=== PATIENT | male | born 1955 | race Caucasian/White ===

== ENCOUNTER 2017-11-10 10:39 | Inpatient (IN) | payer OTHER ==
[~2017-11-10] VITALS: Ht 165.1 cm; Wt 78.8 kg
--- NOTE | ~2017-11-10 | EKG ---
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 : 1955 Requested By: Abebe Saleh Order Number: [id number] MD: Antolin Holloway Measurements Intervals [place] Rate: 71 P: 81 UT: 179 QRS: 22 QRSD: 95 T: 80 QT: 375 QTc: 408 Interpretive Statements Sinus rhythm Borderline T wave abnormalities Inferior infarct, age indeterminate Baseline wander in lead(s) V3 Compared to ECG 04/13/2016 10:52:12 T-wave abnormality now present Electronically Signed On 11-11-2017 15:52:39 CDT by Antolin Holloway [email or web address] <ELECTRONICALLY SIGNED> By: Antolin Holloway MD, [facility] 11/11/17 1552 0638 Antolin Holloway MD, [facility] /EPI
--- NOTE | ~2017-11-10 | CATHLAB ---
[facility] [address] [place] [address] INVASIVE PROCEDURE REPORT Name: CLYDE BARAHONA Room #: 214-P [facility] IN ..#: [id number] Admission: 11/10/17 Attend Phys: Gurpreet Schaffer MD Discharge: 11/11/17 Date of : 57 Date of Service: 11/11/17 1754 Report #: [id number] THIS REPORT FOR: //name// APPROVED REPORT Study performed: 11/10/2017 15:54:01 Patient Details Patient Status: In-Patient Room #: The patient is a 62 year-old male Event Personnel Abebe Saleh Liquefaction Plant Operator, Jalen Ortega Procedures Performed Left Heart Cath Coronaries, Bypass Grafts 0692926 LHCCORCABG Art Access - R femoral artery* BRANDIE Revasc Graft Single PDA C9604 SVGREVSING 31570 Initial Mod Sed Same Phys/QHP Gr5y 692880 43262 Mod Sed Same Phys/QHP Ea 715849 Hemostasis w/ Mynx Indication Non-STEMI , Dyspnea, Unstable angina Risk Factors Cerebrovascular Disease, Hypercholesterolemia, Coronary Artery DiseaseHypertension Previous Procedures/Diagnoses Previous CABGPrevious PCI, Previous [place] Procedure Narrative The patient was brought urgently to the Cardiac Catheterization Laboratory and was prepped and draped in a sterile manner. The Right Groin^ was infiltrated with 1% Lidocaine subcutaneous anesthesia. A PINNACLE 4FR Sheath #[id number] sheath was inserted into the RFA^. Coronary angiography was performed using coronary diagnostic catheters. The right coronary system was accessed and visualized with a JR 4 catheter. The left coronary system was accessed and visualized with a JL 4 catheter. The left ventricle was accessed and visualized with a Pigtail catheter. Left ventricular/Aortic Valve gradient assessed via catheter pullback. Left ventriculogram was performed in ARENAS projection. Pre-demployment femoral angiogram was performed . Closure device was deployed with a 6 Fr Mynx. The patient tolerated the procedure well and there were no complications associated with [facility] [address] [place] [address] INVASIVE PROCEDURE REPORT Name: CLYDE BARAHONA Room #: 214-P [facility] IN [facility].#: [id number] Admission: 11/10/17 Attend Phys: Gurpreet Schaffer MD Discharge: 11/11/17 Date of : 57 Date of Service: 11/11/17 1754 Report #: [id number] the procedure. There was no hematoma. Intraoperative Conscious Sedation Sedation start time: 16:37 Case end Time: 17:25 Fentanyl 50 mcg Versed 1 mg Fluoro Time: 15.31 minutes Dose: DAP 9786.10 cGycm2 1290 mGy Contrast Type and Amount: Visipaque 225 ml Coronary Angiography The patient's coronary anatomy is right dominant. Diagnostic Cath Left Main Severe stenosis at distal segment. LAD There is a patent POLO graft with an end side anastomosis to the first diagonal artery, with retrograde filling of the LAD. Diagonal 1 After the anastomosis from the POLO graft, there is a 70% obstruction in the diagonal artery, unchanged from prior procedures. Circumflex 100% occlusion in the proximal segment. OM1 There is a patent free radial graft with an end to side anastomosis to OM1. Right Coronary There are sequential severe stenoses in the vein graft to the PDA. Left Ventriculography Left Ventriculography was not performed. An LVEDP was measured and there is no gradient across the outflow tract. Hemodynamics The aortic pressure is 184/106 mmHg with a mean of 122 mmHg. The left ventricular pressure is 201/17 mmHg with a mean of mmHg. The left ventricular end diastolic pressure is 35 mmHg. PCI Technique Lesion Anticoagulation was achieved with Angiomax. Patient was preloaded with Ticagrelor PO 180 mg. Percutaneous coronary intervention was performed on the saphenous vein graft to the PDA. The lesion stenosis prior to intervention was 95% with ERIK 3 flow. A [place] 6 fr MPA Guide Catheter was used to engage the ostium. A Luge Wire Interventional Guidewire was used to cross the lesion. BALLOON DILATION A Balloon catheter Euphora 2.5 x 15 was inserted and inflated up to [facility] [address] [place] [address] INVASIVE PROCEDURE REPORT Name: CLYDE BARAHONA Room #: 214-P [facility] IN ..#: [id number] Admission: 11/10/17 Attend Phys: Gurpreet Schaffer MD Discharge: 11/11/17 Date of : 57 Date of Service: 11/11/17 1754 Report #: [id number] 10atm for 24seconds. Additional Inflation: 10atm for 24seconds. STENT DEPLOYMENT A drug-eluting stent Resolute Integrity 3.5 x 12 was inserted and inflated up to 16atm for 17seconds. POST STENT DEPLOYMENT BALLOON DILATION A Balloon catheter NC Trek Balloon 3.5 x 12 was inserted and inflated up to 18atm for 15seconds. Final angiography reveals 5 % stenosis with ERIK 3 flow. STENT DEPLOYMENT A drug-eluting stent Resolute Integrity 3.5 x 18 was inserted and inflated up to 12atm for 15seconds. Final angiography reveals 5 % stenosis with ERIK 3 flow. Conclusion 1. Successful insertion of drug-eluting stents into the severe occlusions in the SVG to PDA. 2. Patent POLO graft to the first diagonal artery, with retrograde filling of the LAD vessel. 3. Patent radial graft to OM1. 4. Recommend dual antiplatelet therapy. <ELECTRONICALLY SIGNED> By: Abebe Saleh MD 11/11/171753 53 53 Abebe Saleh MD /INF
--- NOTE | ~2017-11-10 | EKG ---
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
--- NOTE | ~2017-11-10 | EKG ---
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 : 1955 Requested By: Gaurang Valentin Order Number: [id number] MD: Antolin Holloway Measurements Intervals [place] Rate: 66 P: 75 ID: 189 QRS: 13 QRSD: 97 T: 79 QT: 422 QTc: 443 Interpretive Statements Sinus rhythm Inferior infarct, age indeterminate Compared to ECG 04/13/2016 10:52:12 No significant change was found Electronically Signed On 11-11-2017 14:08:39 CDT by Antolin Holloway [email or web address] <ELECTRONICALLY SIGNED> By: Antolin Holloway MD, [facility] 11/11/17 1408 D: [id number] Antolin Holloway MD, [facility] /EPI
--- NOTE | ~2017-11-10 | HC ---
[facility] [place] [address] [place] [address] CONSULTATION Name: JUNCLYDE Fer Room #: 214-P [facility] IN M.R.#: [id number] Admission: 11/10/17 Attend Phys: Gurpreet Schaffer MD Discharge: Date of : 57 Report #: [id number] THIS REPORT FOR: //name// CC: Sofia Schaffer DATE OF SERVICE: 11/10/2017 INDICATION: Chest pain. HISTORY OF PRESENT ILLNESS: The patient is a 62-year-old gentleman with a history of CABG, CA, stents, presenting with recurrent chest pain. For the past several days, he has been experiencing a substernal chest discomfort, brought on by mild exertion. Just walking from room to room will elicit the chest pain. He also developed some shortness of air. His symptoms are relieved with rest. There is no history of fever, nausea, diarrhea, or chills. He denies any history of PND or orthopnea. PAST MEDICAL HISTORY: CABG in 2003, at [facility]. 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 There is a patent POLO to the diagonal artery, with retrograde filling of the LAD. There is a patent free radial graft to an OM vessel. There is severe diffuse disease in small caliber vessels including diagonal, distal OM and mid PDA. History of diabetes mellitus, hypertension, hypercholesterolemia, ischemic cardiomyopathy. History of CVA, status post apparent thrombectomy at [facility] in 2016, denies any residual effects. ALLERGIES: To CONTRAST, PENICILLIN, and LISINOPRIL MEDICATIONS: Lipitor 40 mg daily, omeprazole, Coreg 25 mg twice a day, losartan 50 mg daily, aspirin, and Plavix. SOCIAL HISTORY: Denies tobacco use. FAMILY HISTORY: Negative for premature CAD. REVIEW OF SYSTEMS: A full 10-point review of systems performed. Only the pertinent positives and negatives are described in the HPI. PHYSICAL EXAMINATION: VITAL SIGNS: Blood pressure is 148/85, heart rate 66 beats per minute. GENERAL APPEARANCE: This is an elderly appearing male, in no acute distress. HEENT: Normocephalic. Sclerae are anicteric. ENT: Oral mucosa moist. NECK: Supple. LUNGS: CTA. [address] [address] CONSULTATION Name: CLYDE BARAHONA Room #: 214-P [facility] IN M.R.#: [id number] Admission: 11/10/17 Attend Phys: Gurpreet Schaffer MD Discharge: Date of : 57 Report #: [id number] CARDIAC: RRR. S1, S2 positive. ABDOMEN: Soft. EXTREMITIES: No cyanosis, no edema. ECG reveals sinus rhythm, nonspecific findings. LABORATORY VALUES: Hemoglobin 14.3. Creatinine is 1.0. Troponin is 0.10. ASSESSMENT AND PLAN: 1. Unstable angina/acute coronary syndrome, given his history and presentation, the plan is to proceed with a cardiac catheterization. The patient understands and wishes to proceed. 2. Hypertension, continue with medications. 3. Hypercholesterolemia, continue with statins. 4. Cerebrovascular accident, stable at this time. <ELECTRONICALLY SIGNED> By: Abebe Saleh MD 11/11/17 0743 1321 1831 Abebe Saleh MD /nt
[~2017-11-10 10:39] MED LIST: ACCUPRIL10 MG PO; AMLODIPINE BESY10 MG PO; ASA5UEC PO; ASPIRIN81 M2 PO; ATORVASTATIN CA40 MG PO; CARVEDILOL25 MG PO; COZAAR 50 MG TA50 M2 PO; EFFIENT10 MG PO; FISH OIL 1,001000 M2 PO; FLOMAX0.4 MG PO; GLUCOPHAGE500 MG PO; HYDROCHLOROTH12.5 M1 PO; IBUPROFEN 800800 MG PO; LEVAQUIN 500 M500 MG PO; LIPITOR 20 MG T20 M1 PO; LORTAB 10 MG-3473 ML PO; MEN'S MULTI-VI1 EACH; NORCO 5-325 TA1 EACH PO; NORVASC10 MG PO; OMEPRAZOLE20 M1; PERCOCET 5-3251 EACH PO; TESSALON PERLE100 MG PO; TOPROL XL100 MG; ULTRACET TABLE1 EACH PO; VENTOLIN HFA 1818 GM INH; ZOFRAN ODT4 MG PO
[2017-11-10 10:48] VITALS: BP 171/93
[2017-11-10] MEDS ORDERED: ASPIR 8181 MG PO (10:56)
[2017-11-10] MEDS ORDERED: PLAVIX 75 MG TA75 M1 PO (10:58)
[2017-11-10 11:49] LABS: ABSOLUTE NEUTROPHILS 4.9 thou/uL (1.4-8.2); BASOPHILS 0.5 % (0.0-2.0); EOSINOPHILS 0.8 % (0.0-3.0); HEMATOCRIT 42.5 % (42.0-52.0); HEMOGLOBIN 14.3 gm/dL (14.0-18.0); MCH 31.3 pg (26.0-34.0); MCHC 33.5 g/dL (28.0-37.0); MCV 93.3 fL (80.0-100.0); PLATELET COUNT 161 thou/uL (150-400); POLYS 65.7 % (36.0-66.0); RBC 4.56 mil/uL (4.50-6.00); RDW 13.4 % (10.5-14.5); WBC 7.4 thou/uL (4.0-11.0)
[2017-11-10 11:51] LABS: CALCIUM 8.9 mg/dL (8.5-10.1); POTASSIUM 4.2 mmol/L (3.5-5.1)
[2017-11-10 12:00] LABS: ALBUMIN 3.7 g/dL (3.4-5.0); TOTAL BILIRUBIN 0.6 mg/dL (<0.1-1.0); TOTAL PROTEIN 6.6 g/dL (6.4-8.2); TROPONIN-I 0.1 ng/mL (<0.06)
[2017-11-10 12:28] LABS: APTT 28.2 Seconds (24.5-32.8); INR 1.1; PROTIME 10.8 Seconds (9.3-11.4)
[2017-11-10 13:25] VITALS: BP 137/86
[2017-11-10 19:35] VITALS: BP 154/87
[2017-11-11 00:47] VITALS: BP 153/92
[2017-11-11 04:05] LABS: HEMATOCRIT 43.3 % (42.0-52.0); HEMOGLOBIN 14.4 gm/dL (14.0-18.0); MCH 30.8 pg (26.0-34.0); MCHC 33.3 g/dL (28.0-37.0); MCV 92.8 fL (80.0-100.0); RBC 4.66 mil/uL (4.50-6.00); RDW 13.3 % (10.5-14.5); WBC 12.6 thou/uL (4.0-11.0)
[2017-11-11 04:21] LABS: CALCIUM 8.7 mg/dL (8.5-10.1); CREATININE 1.1 mg/dL (0.7-1.3); POTASSIUM 3.9 mmol/L (3.5-5.1); TROPONIN-I 0.27 ng/mL (<0.06)
[2017-11-11 05:05] VITALS: BP 153/92
[2017-11-11 07:45] VITALS: BP 157/85
[2017-11-11 11:07] VITALS: BP 153/83
[2017-11-11] MEDS ORDERED: BRILINTA90 MG PO (15:04)
[2017-11-11] MEDS ORDERED: NITROGLYCERIN0.4 MG SUBLING (15:04)
[2017-11-11 15:26] VITALS: BP 146/81
[2017-11-11 15:27] VITALS: BP 146/81
== END 2017-11-11 16:12 | disposition home or self-care (01) | DRG 246 ==
LOC: ER 10:39 → 2N 12:34 → EROBS 12:34 → 2N 13:25
PROVIDERS: Emergency Medicine; Hospitalist
PROC: B2151ZZ Fluoroscopy of Left Heart using Low Osmolar Contrast (ICD-10-PCS; principal; 2017-11-10)
PROC: B2111ZZ Fluoroscopy of Multiple Coronary Arteries using Low Osmolar Contrast (ICD-10-PCS; principal; 2017-11-10)
PROC: 4A023N7 Measurement of Cardiac Sampling and Pressure, Left Heart, Percutaneous Approach (ICD-10-PCS; principal; 2017-11-10)
PROC: 027035Z Dilation of Coronary Artery, One Artery with Two Drug-eluting Intraluminal Devices, Percutaneous Approach (ICD-10-PCS; principal; 2017-11-10)
DX: I21.4 Non-ST elevation (NSTEMI) myocardial infarction (principal); I50.33 Acute on chronic diastolic (congestive) heart failure; I42.9 Cardiomyopathy, unspecified; I25.810 Atherosclerosis of coronary artery bypass graft(s) without angina pectoris; Z96.643 Presence of artificial hip joint, bilateral; E78.5 Hyperlipidemia, unspecified; E78.00 Pure hypercholesterolemia, unspecified; M19.90 Unspecified osteoarthritis, unspecified site; E11.9 Type 2 diabetes mellitus without complications; I25.2 Old myocardial infarction; Z95.1 Presence of aortocoronary bypass graft; Z86.73 Personal history of transient ischemic attack (TIA), and cerebral infarction without residual deficits; Z95.5 Presence of coronary angioplasty implant and graft; Z79.82 Long term (current) use of aspirin; Z88.0 Allergy status to penicillin; Z88.8 Allergy status to other drugs, medicaments and biological substances; Z91.041 Radiographic dye allergy status; Z87.891 Personal history of nicotine dependence; Z79.84 Long term (current) use of oral hypoglycemic drugs; Z79.899 Other long term (current) drug therapy; I11.0 Hypertensive heart disease with heart failure
CPT/HCPCS: 10194

== ENCOUNTER → 2018-05-04 | Outpatient (CLI) | payer OTHER ==
[~2018-05-04] MED LIST changes: +ASPIR 8181 MG PO; +BRILINTA90 MG PO; +NITROGLYCERIN0.4 MG SUBLING; +PLAVIX 75 MG TA75 M1 PO
--- NOTE | ~2018-05-04 | 2DMMODE ---
[facility] [employer] [place] [address] 2 D/M-MODE ECHOCARDIOGRAM Name: CLYDE BARAHONA Room #: REG [facility]#: [id number] Admission: 05/04/18 Attend Phys: Abebe Saleh MD Discharge: Date of : 57 Date of Service: 05/04/18 1556 Report #: [id number] THIS REPORT FOR: //name// APPROVED REPORT Study performed: 05/04/2018 14:49:19 EXAM: Comprehensive 2D, Doppler, and color-flow Echocardiogram Patient Location: Out-Patient Room #: Echo 1 Status: routine BSA: 1.85 HR: 75 bpm BP: 144/82 mmHg Rhythm: NSR Other Information Study Quality: Good Risk Factors: Cardiac Risk Factors: HTN, Hyperlipidemia, DM Indications Diabetes CAD Hypertension/HDD 2D Dimensions RVDd: 29.39 mm IVSd: 11.43 (7-11mm) LVOT Diam: 23.19 (18-24mm) LVDd: 45.80 mm PWd: 11.41 (7-11mm) LVDs: 35.96 (25-40mm) Aortic Root: 33.54 mm IVC: 10.00 mm Volumes Left Atrial Volume (Systole) Single Plane 4CH: 31.37 mL Single Plane 2CH: 40.73 mL LA ESV Index: 20.00 mL/m2 Aortic Valve AoV Peak Timothy.: 1.51 m/s AO Peak Gr.: 9.10 mmHg LVOT Max P.21 mmHg LVOT Max V: 1.03 m/s [facility] [address] [place] [address] 2 D/M-MODE ECHOCARDIOGRAM Name: CLYDE BARAHONA Room #: REG [facility]#: [id number] Admission: 05/04/18 Attend Phys: Abebe Saleh MD Discharge: Date of : 57 Date of Service: 05/04/18 1556 Report #: [id number] LORETA Vmax: 2.87 cm2 AI Vmax: 4.08 m/s AI Hickman: 1.60 m/s2 AI PHT: 737.35 ms Mitral Valve E/A Ratio: 0.9 MV Decel. Time: 175.56 ms MV E Max Timothy.: 0.68 m/s MV A Timothy.: 0.80 m/s MV PHT: 50.91 ms IVRT: 106.11 ms Pulmonary Valve PV Peak Timothy.: 1.01 m/s PV Peak Gr.: 4.06 mmHg Pulmonary Vein P Vein S: 0.69 m/s P Vein A: 0.33 m/s P Vein D: 0.55 m/s P Vein A Dur.: 120.0 msec P Vein S/D Ratio: 1.25 Left Ventricle The left ventricle is normal size. There is normal left ventricular wall thickness. The left ventricular systolic function is normal. LVEF is 55-60%. Grade I - abnormal relaxation pattern. Right Ventricle The right ventricle is normal size. The right ventricular systolic function is normal. Atria The left atrium size is normal. The right atrium size is normal. Aortic Valve The aortic valve is normal in structure. Mild aortic regurgitation. There is no aortic valvular stenosis. Mitral Valve The mitral valve is normal in structure. There is no mitral valve regurgitation noted. No evidence of mitral valve stenosis. Tricuspid Valve The tricuspid valve is normal in structure. Trace tricuspid regurgitation. Unable to assess PA pressure. [facility] [employer] [place] [address] 2 D/M-MODE ECHOCARDIOGRAM Name: JUNCLYDE Monroe Room #: REG [facility]#: [id number] Admission: 05/04/18 Attend Phys: Abebe Saleh MD Discharge: Date of : 57 Date of Service: 05/04/18 1556 Report #: [id number] Pulmonic Valve Pulmonic valve is not well visualized. Trace pulmonic regurgitation. Great Vessels The aortic root is normal in size. The ascending aorta is normal in size. IVC is normal in size and collapses >50% with inspiration. Pericardium There is no pericardial effusion. <Conclusion> The left ventricle is normal size. There is normal left ventricular wall thickness. The left ventricular systolic function is normal. Grade I - abnormal relaxation pattern. The right ventricle is normal size. The left atrium size is normal. Mild aortic regurgitation. The mitral valve is normal in structure. Trace tricuspid regurgitation. <ELECTRONICALLY SIGNED> By: Abebe Saleh MD 05/04/18 1556 155 155 Abebe Saleh MD /INF
== END ==
LOC: CV 04-06 10:27
DX: I35.1 Nonrheumatic aortic (valve) insufficiency (principal); I25.10 Atherosclerotic heart disease of native coronary artery without angina pectoris; I10 Essential (primary) hypertension; E11.9 Type 2 diabetes mellitus without complications

== ENCOUNTER 2020-03-23 10:41 | Inpatient (IN) | payer OTHER ==
[2020-03-23] VITALS (9 sets, daily range): BP systolic 123–155; BP diastolic 76–92
[~2020-03-23] VITALS: Ht 165.1 cm; Wt 65.8 kg
[2020-03-23] MEDS ORDERED: PLAVIX 75 MG TA75 MG PO (10:50)
[2020-03-23 11:06] LABS: ABSOLUTE NEUTROPHILS 10.4 thou/uL (1.4-8.2); BASOPHILS 0.5 % (0.0-2.0); EOSINOPHILS 0.2 % (0.0-3.0); HEMATOCRIT 48.4 % (42.0-52.0); HEMOGLOBIN 16.1 gm/dL (14.0-18.0); LYMPHOCYTES 21.4 % (24.0-44.0); MCH 32.1 pg (26.0-34.0); MCHC 33.2 g/dL (28.0-37.0); MCV 96.7 fL (80.0-100.0); MONOCYTES 3.8 % (1.0-8.0); PLATELET COUNT 261 thou/uL (150-400); POLYS 74.1 % (36.0-66.0); RBC 5.01 mil/uL (4.50-6.00); RDW 13.5 % (10.5-14.5)
[2020-03-23 11:18] LABS: ANION GAP 13 mmol/L (7-16); BUN 17 mg/dL (7-18); CALCIUM 9.3 mg/dL (8.5-10.1); CHLORIDE 104 mmol/L (98-107); CO2 23 mmol/L (21-32); CREATININE 1.2 mg/dL (0.7-1.3); GLUCOSE 270 mg/dL (74-106); POTASSIUM 4.5 mmol/L (3.5-5.1); SODIUM 140 mmol/L (136-145)
[2020-03-23 11:20] LABS: APTT 26.6 Seconds (24.5-32.8); PROTIME 10.3 Seconds (9.3-11.4)
[2020-03-23 11:29] LABS: ALBUMIN 4.3 g/dL (3.4-5.0); MAGNESIUM 1.7 mg/dL (1.8-2.4); SGOT 17 U/L (15-37); SGPT 32 U/L (30-65); TOTAL BILIRUBIN 0.5 mg/dL (0.2-1.0); TOTAL PROTEIN 7.6 g/dL (6.4-8.2); TROPONIN-I <0.06 ng/mL (<0.06)
--- NOTE | 2020-03-23 15:34 | EKG ---
[facility] [place] [address] [address] [place] [address] ELECTROCARDIOGRAM REPORT Name: CLYDE BARAHONA Room #: 214-P ADM IN M.R.#: [id number] Admission: 03/23/20 Attend Phys: Comfort Bethea MD Discharge: Date of : 57 Report #: [id number] THIS REPORT FOR: cc: Sofia Kumari MD, Nora P. 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: : 1955 Requested By: Ibrahima Mason Order Number: [id number] MD: Antione Muñoz Measurements Intervals [place] Rate: 47 P: 92 [place]: 178 QRS: 83 QRSD: 100 T: 96 QT: 451 QTc: 399 Interpretive Statements Sinus bradycardia Consider left atrial enlargement Probable LVH with secondary repol abnrm Inferoposterior infarct, acute (RCA) Probable RV involvement, suggest recording right precordial leads Compared to ECG 11/11/2017 06:38:25 Sinus rhythm no longer present T-wave abnormality no longer present Myocardial infarct finding still present Electronically Signed On 03-23-2020 15:34:51 CDT by Antione Muñoz [email or web address] <ELECTRONICALLY SIGNED> By: Antione Muñoz MD, FAC 03/23/20 1534 1049 1049 Antione Muñoz MD, [facility] /EPI
--- NOTE | 2020-03-23 15:43 | CATHLAB ---
[facility] [address] [place] [address] INVASIVE PROCEDURE REPORT Name: CLYDE BARAHONA Room #: 214-P ADM IN .R.#: [id number] Admission: 03/23/20 Attend Phys: Comfort Bethea MD Discharge: Date of : 57 Report #: [id number] THIS REPORT FOR: cc: Sofia Kumari MD, Nora P. MD Park, Jin S. MD ~ APPROVED REPORT Study performed: 03/23/2020 11:35:43 Patient Details Patient Status: In-Patient Room #: The patient is a 64 year-old male Event Personnel Abebe Saleh Planimeter Operator, Amy Avelar RN RN, Dasha Cisse Monitor, Katy Hui RTR Scrub, Radha Gandara Scrub Procedures Performed Art Access - R femoral artery* 90140 Initial Mod Sed Same Phys/QHP Gr5y 061754 Left Heart Cath Coronaries, Bypass Grafts 2675176 LHCCORCABG BRANDIE Place w/wo Plasty Single PDA 004199 Hemostasis w/ Mynx Indication STEMI (>0 to less than or equal to 6 hours), Dyspnea, Chest pain Risk Factors Cerebrovascular Disease, Hypercholesterolemia, Coronary Artery DiseaseHypertension, Diabetes Previous Procedures/Diagnoses Previous CABGPrevious CVAPrevious PCI, Previous [place] Procedure Narrative The patient was brought emergently to the Cardiac Catheterization Laboratory and was prepped and draped in a sterile manner. The Right Groin^ was infiltrated with 1% Lidocaine subcutaneous anesthesia. A PINNACLE 6FR Sheath #[id number] sheath was inserted into the RFA^. Coronary angiography was performed using coronary diagnostic catheters. The right coronary system was accessed and visualized with a JR 4 catheter. The left coronary system was accessed and visualized [facility] [address] [place] [address] INVASIVE PROCEDURE REPORT Name: CLYDE BARAHONA Room #: 214-P [facility] IN [facility].#: [id number] Admission: 03/23/20 Attend Phys: Daniel Redd Discharge: Date of : 57 Report #: [id number] with a JL 4 catheter. The left ventricle was accessed and visualized with a Pigtail catheter. Left ventricular/Aortic Valve gradient assessed via catheter pullback. Left ventriculogram was performed in ARENAS projection. Pre-demployment femoral angiogram was performed . Closure device was deployed with a 6 Fr Mynx. The patient tolerated the procedure well and there were no complications associated with the procedure. There was no hematoma. Intraoperative Conscious Sedation Sedation start time: 11:46 Case end Time: 12:29 Fentanyl 50 mcg Versed 1 mg Fluoro Time: 19.40 minutes Dose: DAP 24131.00 cGycm2 4158 mGy Contrast Type and Amount: Visipaque 265 ml Diagnostic Cath Left Main The left main has a severe occlusion distally. LAD There is a patent POLO graft with an end-to-side anastomosis to the first diagonal artery. After the anastomosis, there is retrograde filling of the mid and distal LAD. Diagonal 1 After the anastomosis, there is a severe occlusion in the midsegment, 70%. This is unchanged from prior procedures. Circumflex There is a patent free radial graft with a end-to-side anastomosis to OM1. Right Coronary The RCA is occluded. R PDA There is a saphenous vein graft with a end-to-side anastomosis to the PDA. After the anastomosis, there is retrograde filling of the posterior lateral branch. There are patent stents within the body of the vein graft. At the distal segment of the SVG, there is a severe occlusion of 99%. At the anastomosis, there is a severe occlusion in the PDA, 80%. Left Ventriculography Left Ventriculography was not performed. An LVEDP was measured and there is no gradient across the outflow tract. IVUS Findings Euphora RX 2.0 x 15 #[id number] Hemodynamics The aortic pressure is 211/88 mmHg with a mean of 130 mmHg. The left ventricular pressure is 133/14 mmHg with a mean of mmHg. The left [facility] [address] [place] [address] INVASIVE PROCEDURE REPORT Name: CLYDE BARAHONA Room #: 214-P [facility] IN M.R.#: [id number] Admission: 03/23/20 Attend Phys: Daniel Redd Discharge: Date of : 57 Report #: [id number] ventricular end diastolic pressure is 24 mmHg. PCI Technique Lesion Percutaneous coronary intervention was performed on the SVG to right posterior descending artery. The lesion stenosis prior to intervention was 99% with ERIK 2 flow. [place] 6FR MPA 1 #[id number] Guide Catheter was used to engage the ostium. A Luge Wire .014 x 182CM #[id number] Interventional Guidewire was used to cross the lesion. BALLOON DILATION A Balloon catheter TREK RX 2.50 X 8 #[id number] was inserted and inflated up to 8.00atm for 17seconds. Additional Inflation: 8.00atm for 8seconds. STENT DEPLOYMENT A drug-eluting stent RESOLUTE ALEXANDRA RX 3.5 X 15 #[id number] was inserted and inflated up to 16.00atm for 24seconds. Additional Inflation: 18.00atm for 10seconds. Final angiography reveals 0 % stenosis with ERIK 3 flow. BALLOON DILATION A Balloon catheter Euphora RX 2.0 x 15 #[id number] was inserted and inflated up to 8.00atm for 20seconds. Additional Inflation: 12.00atm for 17seconds. Additional Inflation: 10.00atm for 18seconds. STENT DEPLOYMENT A drug-eluting stent RESOLUTE ALEXANDRA RX 2.0 X 18 #[id number] was inserted and inflated up to 12.00atm for 20seconds. Additional Inflation: 14.00atm for 15seconds. PCI Technique Lesion 2 Percutaneous coronary intervention was performed on the right posterior descending artery. The lesion stenosis prior to intervention was 80% with ERIK 2 flow. Balloon Dilation A Balloon catheter Euphora RX 2.0 x 15 #[id number] was inserted and inflated up to 8atm for 12seconds. Stent Deployment A drug-eluting stent RESOLUTE ALEXANDRA RX 2.0 X 18 #[id number] was inserted and inflated up to 12atm for 12seconds. Post Stent Deployment Balloon Dilation [facility] [address] [place] [address] INVASIVE PROCEDURE REPORT Name: CLYDE BARAHONA Room #: 214-P ADM IN M.R.#: [id number] Admission: 03/23/20 Attend Phys: Daniel Redd Discharge: Date of : 57 Report #: [id number] A Balloon catheter Euphora NC RX 2.0 x 12 #[id number] was inserted and inflated up to 16atm for 12seconds. Final angiography reveals 5 % stenosis with ERIK 3 flow. Conclusion 1. Successful insertion of a drug-eluting stent into the distal segment of the SVG to the PDA. 2. Successful insertion of a drug-eluting stent into the PDA after the anastomosis of the SVG. 3. There is a patent POLO graft to the first diagonal artery, with retrograde filling of the LAD. 4. There is a patent free radial graft to OM1. 5. Recommend dual antiplatelet therapy and guideline directed medical therapy. <ELECTRONICALLY SIGNED> By: Abebe Saleh MD 03/23/20 1543 1543 1543 Abebe Saleh MD /INF
--- NOTE | 2020-03-23 15:52 | NUR ---
ASSUMED CARE OF PT AT APPROX 1420 FROM OPHTHALMIC AIDE, D/T STEMI. [address] R GROIN SITE CDI WITHOUT BRUISING OR HEMATOMA. ADMISSION ORDERS, INSTRUCTIONS AND ASSESSMENT COMPLETE. WILL CONTINUE TO MONITOR AND FOLLOW POC.
[2020-03-23] MEDS ORDERED: COZAAR 25 MG TA25 MG PO (16:59)
[2020-03-23 23:03] LABS: AMP/METHAMP Negative (Negative); BARBITURATES Negative (Negative); BENZODIAZEPINES POSITIVE (Negative); COCAINE Negative (Negative); METHADONE Negative (Negative); OPIATES Negative (Negative); PCP Negative (Negative)
[2020-03-24 04:00] VITALS: BP 131/64
[2020-03-24 04:15] VITALS: BP 131/64
--- NOTE | 2020-03-24 04:42 | NUR ---
assumed pt care at the change of shift, pt is awake, alert and oriented, assessments as charted, meds given as per mar, denies chest pain or sob, sr on the monitor, vss, right groin cath site cdi, no hematoma, sleep interrupted, denies having concerns, no acute distress noted, progressing well towards poc, plan to dc home
[2020-03-24 05:40] LABS: HEMATOCRIT 45.4 % (42.0-52.0); HEMOGLOBIN 15.1 gm/dL (14.0-18.0); MCHC 33.3 g/dL (28.0-37.0); MCV 96.2 fL (80.0-100.0); RBC 4.72 mil/uL (4.50-6.00); RDW 13.6 % (10.5-14.5)
--- NOTE | 2020-03-24 07:40 | EKG ---
[facility] [place] [address] ELECTROCARDIOGRAM REPORT Name: JUNCLYDE Fer Room #: 214-P ADM IN M.R.#: [id number] Admission: 03/23/20 Attend Phys: Comfort Bethea MD Discharge: Date of : 57 Report #: [id number] THIS REPORT FOR: cc: Sofia Kumari MD, Nora P. 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 : 1955 Requested By: Abebe Saleh Order Number: [id number] MD: Antione Muñoz Measurements Intervals [place] Rate: 86 P: 57 MO: 177 QRS: -5 QRSD: 95 T: 83 QT: 350 QTc: 419 Interpretive Statements Sinus rhythm Probable left ventricular hypertrophy Inferior infarct, recent, ST elevation less prominent Compared to ECG 03/23/2020 10:49:40 Sinus bradycardia no longer present Myocardial infarct finding still present Electronically Signed On 03-24-2020 7:40:30 CDT by Antione Muñoz [email or web address] <ELECTRONICALLY SIGNED> By: Antione Muñoz MD, FACC 03/24/20 0740 1733 1733 Antione Muñoz MD, FACC /EPI
[2020-03-24 07:52] VITALS: BP 130/80
--- NOTE | 2020-03-24 08:17 | EKG ---
[facility] [place] [address] [address] ELECTROCARDIOGRAM REPORT Name: CLYDE BARAHONA Room #: 214-P ADM IN M.R.#: [id number] Admission: 03/23/20 Attend Phys: Comfort Bethea MD Discharge: Date of : 57 Report #: [id number] THIS REPORT FOR: cc: Sofia Kumari MD, Nora P. 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 : 1955 Requested By: Abebe Saleh Order Number: [id number] MD: Antolin Holloway Measurements Intervals [place] Rate: 75 P: 74 DC: 172 QRS: -17 QRSD: 109 T: -63 QT: 427 QTc: 477 Interpretive Statements Sinus rhythm Inferior infarct, age indeterminate Abnrm T, consider ischemia, lateral lds Compared to ECG 03/23/2020 17:33:57 Lateral T wave abnormality is more pronounced Electronically Signed On 03-24-2020 8:17:26 CDT by Antolin Holloway [email or web address] <ELECTRONICALLY SIGNED> By: Antolin Holloway MD, FACC 03/24/20816 4 4 Antolin Holloway MD, FACC /EPI
[2020-03-24] MEDS ORDERED: BRILINTA90 MG PO (09:47)
[2020-03-24 11:18] VITALS: BP 103/69
--- NOTE | 2020-03-24 13:28 | 2DMMODE ---
[facility] [place] [address] 2 D/M-MODE ECHOCARDIOGRAM Name: CLYDE BARAHONA Room #: 214-P ADM IN M.R.#: [id number] Admission: 03/23/20 Attend Phys: Comfort Bethea MD Discharge: Date of : 57 Report #: [id number] THIS REPORT FOR: cc: Sofia Kumari MD, Nora P. MD Park, Jin S. MD ~ APPROVED REPORT Study performed: 03/24/2020 12:18:58 EXAM: Comprehensive 2D, Doppler, and color-flow Echocardiogram Patient Location: Bedside Room #: 214 Status: routine BSA: 1.73 HR: 62 bpm BP: 103/69 mmHg Rhythm: NSR Other Information Study Quality: Good Indications STEMI, status post PCI. Hx: MIx2, CABG, stents, HTN, HLP, DM. 2D Dimensions RVDd: 34.76 mm IVSd: 10.06 (7-11mm) LVDd: 40.61 mm PWd: 10.22 (7-11mm) Ascending Ao: 29.41 (22-36mm) LVDs: 31.88 (25-40mm) Aortic Root: 37.34 mm Volumes Left Atrial Volume (Systole) Single Plane 4CH: 32.13 mL Single Plane 2CH: 52.10 mL LA ESV Index: 26.00 mL/m2 Aortic Valve AoV Peak Timothy.: 1.37 m/s AO Peak Gr.: 7.47 mmHg LVOT Max P.94 mmHg LVOT Max V: 0.99 m/s [facility] [address] [place] [address] 2 D/M-MODE ECHOCARDIOGRAM Name: CLYDE BARAHONA Room #: 214-P [facility] IN ..#: [id number] Admission: 03/23/20 Attend Phys: Daniel Redd Discharge: Date of : 57 Report #: [id number] Mitral Valve E/A Ratio: 1.1 MV Decel. Time: 248.32 ms MV E Max Timothy.: 0.74 m/s MV A Timothy.: 0.66 m/s MV PHT: 72.01 ms IVRT: 89.97 ms Pulmonary Valve PV Peak Timothy.: 1.00 m/s PV Peak Gr.: 3.99 mmHg Pulmonary Vein P Vein S: 0.60 m/s P Vein D: 0.50 m/s P Vein S/D Ratio: 1.20 Tricuspid Valve RAP Estimate: 5.00 mmHg Left Ventricle The left ventricle is normal size. There is hypokinesis in the mid to basal inferior wall. There is normal left ventricular wall thickness. Left ventricular systolic function is low-normal LVEF is 50%. Moderate diastolic dysfunction is present. Right Ventricle The right ventricle is normal size. The right ventricular systolic function is normal. Atria The left atrium size is normal. The right atrium size is normal. Aortic Valve The aortic valve is normal in structure; mildly calcified. Mild aortic regurgitation. There is no aortic valvular stenosis. Mitral Valve The mitral valve is normal in structure. Minimal mitral annular calcification. There is no mitral valve regurgitation noted. No evidence of mitral valve stenosis. Tricuspid Valve The tricuspid valve is normal in structure. There is no tricuspid valve regurgitation noted. Unable to assess PA pressure. [facility] [address] [address] 2 D/M-MODE ECHOCARDIOGRAM Name: CLYDE BARAHONA Room #: 214-P [facility] IN ..#: [id number] Admission: 03/23/20 Attend Phys: Daniel Redd Discharge: Date of : 57 Report #: [id number] Pulmonic Valve Pulmonic valve is not well visualized. Trace pulmonic regurgitation. Great Vessels The aortic root is normal in size. The ascending aorta is normal in size. IVC is normal in size and collapses >50% with inspiration. Pericardium There is no pericardial effusion. <Conclusion> The left ventricle is normal size. The left ventricle is normal size. Left ventricular systolic function is low-normal There is hypokinesis in the mid to basal inferior wall. Moderate diastolic dysfunction is present. The right ventricle is normal size. The aortic valve is normal in structure; mildly calcified. Mild aortic regurgitation. There is no mitral valve regurgitation noted. <ELECTRONICALLY SIGNED> By: Abebe Saleh MD 03/24/208 27 27 Abebe Saleh MD /INF
[2020-03-24 15:49] VITALS: BP 142/87
--- NOTE | 2020-03-24 17:47 | NUR ---
ASSUMED CARE AT CHANGE OF SHIFT. ALERTX4, DENIES PAIN, DENIES SOB.RIGHT GROIN SIGHT C/D/I. SR ON TELE, TROPONIN VALUE REPORTED TO CARDIOLGY WITH NO NEW ORDERS. UP AB ALICIA. SHOWERED TODAY. MEDS GIVEN PER ORDERS. PROGRESSING TOWARDS GOALS. PLANS TO DC HOME ON FRIDAY. CALLS FOR ASSISTANCE. CALL LIGHT AND PERSONAL ITEMS IN REACH.
[2020-03-24 19:30] VITALS: BP 127/75
[2020-03-24 20:21] LABS: MAGNESIUM 1.8 mg/dL (1.8-2.4); POTASSIUM 4.3 mmol/L (3.5-5.1)
[2020-03-25 04:54] VITALS: BP 144/83
--- NOTE | 2020-03-25 06:39 | NUR ---
ASSUMED PT CARE AT SHIFT CHANGE; A&OX4; PATIENT SLEPT THROUGH MOST OF THE NIGHT; UP AB ALICIA; DENIES PAIN; MEDS GIVEN PER ORDERS; PROGRESSING TOWARD GOALS AND POC; PLAN TO DISCHARGE HOME
[2020-03-25 08:28] VITALS: BP 155/72
[2020-03-25 10:23] VITALS: BP 155/72
--- NOTE | 2020-03-25 11:51 | NUR ---
ASSUMMED PT CARE AT APPROXIMATELY 0700. PT A&O X4. ASSESSMENT CHARTED. FALL PRECAUTIONS IN PLACE. PT DENIES HAVING CHEST PAIN. PT DENIES HAVING SOB. PT DENIES HAVING ACUTE PAIN. PT R GROIN OPEN TO AIR AND IS C/D/I. PT DISCHARGING HOME C SELF CARE. PT RECEIVED DISCHARGE EDUCATION. PT STATED UNDERSTANDING AND DENIED HAVING FURTHER QUESTIONS. IV'S DC. TELE DC. PT AWAITING RIDE TO ARRIVE. PT WILL RECEIVE HOSPITAL TRANSPORT OFF UNIT. PT AMBULATES STEADY/INDEPENDENT. VITAL SIGNS STABLE. BLOOD SUGAR STABLE.
[2020-03-25] MEDS ORDERED: NITROGLYCERIN0.4 MG SUBLING (12:11)
== END 2020-03-25 14:12 | disposition home or self-care (01) | DRG 246 ==
LOC: ER 10:41 → 2N 11:29 → TBACV 11:29 → 2N 14:19
PROVIDERS: Emergency Medicine; Hospitalist; Internal Medicine Cardiovascular Disease; ADMIT Hospitalist; ATTEND Hospitalist
PROC: 4A023N7 Measurement of Cardiac Sampling and Pressure, Left Heart, Percutaneous Approach (ICD-10-PCS; principal; 2020-03-23)
PROC: B215YZZ Fluoroscopy of Left Heart using Other Contrast (ICD-10-PCS; principal; 2020-03-23)
PROC: B241ZZ3 Ultrasonography of Multiple Coronary Arteries, Intravascular (ICD-10-PCS; principal; 2020-03-23)
PROC: B21FYZZ Fluoroscopy of Other Bypass Graft using Other Contrast (ICD-10-PCS; principal; 2020-03-23)
PROC: B211YZZ Fluoroscopy of Multiple Coronary Arteries using Other Contrast (ICD-10-PCS; principal; 2020-03-23)
PROC: 027036Z Dilation of Coronary Artery, One Artery with Three Drug-eluting Intraluminal Devices, Percutaneous Approach (ICD-10-PCS; principal; 2020-03-23)
DX: I21.19 ST elevation (STEMI) myocardial infarction involving other coronary artery of inferior wall (principal); I50.31 Acute diastolic (congestive) heart failure; E11.9 Type 2 diabetes mellitus without complications; I25.10 Atherosclerotic heart disease of native coronary artery without angina pectoris; I25.5 Ischemic cardiomyopathy; Z96.643 Presence of artificial hip joint, bilateral; Z95.5 Presence of coronary angioplasty implant and graft; Z88.0 Allergy status to penicillin; Z88.8 Allergy status to other drugs, medicaments and biological substances; I25.2 Old myocardial infarction; Z91.041 Radiographic dye allergy status; Z87.891 Personal history of nicotine dependence; Z95.1 Presence of aortocoronary bypass graft; Z86.73 Personal history of transient ischemic attack (TIA), and cerebral infarction without residual deficits; Z23 Encounter for immunization; Z79.899 Other long term (current) drug therapy; I11.0 Hypertensive heart disease with heart failure
CPT/HCPCS: 10081